=== PATIENT | female | born 1975 | race Two or more races ===

== ENCOUNTER → 2020-01-17 | Outpatient (CLI) | payer SELFPAY ==
--- NOTE | 2020-01-17 12:57 | ER RDC ASSESSMENT REPORT ---
Intake - In the Last 14 days Have you traveled outside [place]?: No Have you been in close contact with someone CONFIRMED: Yes Worked in Healthcare?: No - Symptoms Subjective Fever(Victor feverish): No Chills: No Muscule Aches: No Runny Nose: No Sore Throat: No Cough (New or worsening chronic cough): No Shortness of breath: No Nausea or Vomiting: No Headache: No Abdominal Pain: No Diarrhea(3 or more loose stools in last 24 hours): No - Do you have any of the following Chronic lung disease: Asthma or emphysema or COPD: Yes Chronic Lung Disease Comment: asthma Cystic Fibrosis: No Diabetes: No High Blood Pressure: No Cardiovascular Disease: No Chronic Kidney Disease: No Chronic Liver Disease: No Chronic blood disorder like Sickle Cell Disease: No Weak immune system due to disease or medication: No Neurologic condition that limits movement: No Developmental delay - Moderate to Severe: No Recent (within past 2 weeks) or current : No Morbid Obesity (>100 pounds over ideal weight): No - Objective Temperature: 98.1 F Pulse Rate: 77 Respiratory Rate: 18 Blood Pressure: 131/75 O2 Sat by Pulse Oximetry: 95 Objective: Given above, testing performed: If Testing Performed: Test Specimen Type Sent to General - General Information source: Patient Notes: Patient presents to the C for screening for the coronavirus. Patient reports recent [id number] travel. Patient denies any symptoms at this time. Past Medical History - General Information source: Patient - Social History Smoking Status: Current Every Day Smoker Pulmonary Medical History: Reports: Hx Asthma Surgical Hx: Negative Physical Exam - Notes Notes: The patient was evaluated during the global Covid 19 pandemic, and that diagnosis was suspected/considered upon their initial presentation. Their evaluation, treatment and testing was consistent with current guidelines for patients who present with complaints or symptoms that may be related to Covid 19. Full physical exam could not be performed due to covid 19 isolation protocols. Constitutional: Nontoxic appearance, no acute distress Eyes: Nonicteric, extraocular movements intact, sclera clear Cardiovascular: Heart rate and rhythm regular, no JVD Respiratory: Breath sounds clear bilaterally, nonlabored breathing, no use of accessory muscles, no tachypnea Gastrointestinal: Abdomen not distended Muculoskeletal: Moves all extremities well Skin: Normal color Neuro: Awake alert oriented, normal speech Psych: Normal mood and affect Diagnostic Results Laboratory Results: Patient presents with possible exposure worrisome for possible Covid 19. Patient does not have emergency worrying symptoms such as difficulty breathing, shortness of breath, chest pain, pressure, confusion or cyanosis. Patient appears suitable for discharge as they are not of an advanced age, do not have any chronic medical conditions such as diabetes, CAD, immune deficiency, or chronic kidney disease. Patient's vital signs are stable and patient is nontoxic in appearance. Good return precautions have been discussed with patient, patient verbalized understanding and is agreeable with discharge plan of care at this time. Patient Education/Counseling Counseling/Education: Patient was provided with discharge information including: As a person under investigation for Covid 19, the [facility], division of public health advises you to adhere to the following guidance until your test results are reported to you. If your test result is positive, you will receive additional information from your provider and your local health department at that time. Remain at home until you are cleared by the health provider or public health authorities. Keep a log of visitors to your home, notify any visitors to your home of your isolation status. If you plan to move to a new address or leave the county, notify the local health department in your County. Call your doctor or seek care if you have an urgent medical need. Before se eking medical care, call ahead to get instructions from the provider before arriving at the medical office clinic or hospital. Notify them that you are being tested for the virus that causes Covid 19 so that arrangements can be made, as necessary, to prevent transmission to others in the healthcare setting. Next, notify the local health department in your county. If a medical emergency arises and you need to call 911, inform the first responders that you are being tested for the virus that causes Covid 19. Next, notify the local health department in your county. RDC Discharge - Discharge Condition: Stable Disposition: Home; Selfcare
[2020-01-17 13:05] VITALS: BP 131/75
== END ==
LOC: RDC 12:31
PROVIDERS: ATTEND Nurse Practitioner Family
DX: Z20.828 Contact with and (suspected) exposure to other viral communicable diseases (principal); J45.909 Unspecified asthma, uncomplicated; F17.200 Nicotine dependence, unspecified, uncomplicated
CPT/HCPCS: 87635; C9803; 99201

== ENCOUNTER 2020-01-21 20:04 | Emergency (ER) | payer SELFPAY ==
--- NOTE | 2020-01-21 20:37 | ER Document Report ---
ED Medical Screen (RME) - General Chief Complaint: Eye Problem Stated Complaint: PINK EYE/EYE ITCHING,IRRITATION Time Seen by Provider: 01/21/20 20:30 Mode of Arrival: Ambulatory Information source: Patient Notes: 44-year-old presents to ED for complaint of sore throat runny nose pinkeye for the last 4 days. She states she does not really cough. She states she has not had any fevers. She states she did get tested to get tested on Friday in the emergency room came back negative. She states she just got the results of her test yesterday. She states she has not been to work since she got tested. She is alert oriented respirations regular nonlabored speaking in full sentences. He states when she came here on Friday she did not have pinkeye eyes and runny eyes. She states the peak runny eyes started on Friday morning. States she has been home since she was in the emergency room as she was waiting for her results. Will get strep test visual acuity and have her seen by someone to get a thorough eye exam. I have greeted and performed a rapid initial assessment of this patient. A comprehensive ED assessment and evaluation of the patient, analysis of test results and completion of medical decision making process will be conducted by an additional ED providers. Past Medical History Pulmonary Medical History: Reports: Hx Asthma Physical Exam - Vital signs Vitals: Temp Pulse Resp BP Pulse Ox 98.4 F 91 16 134/80 H 98 01/21/20 20:08 01/21/20 20:08 01/21/20 20:08 01/21/20 20:08 01/21/20 20:08 Course - Vital Signs Vital signs: Temp Pulse Resp BP Pulse Ox 98.4 F 91 16 134/80 H 98 01/21/20 20:08 01/21/20 20:08 01/21/20 20:08 01/21/20 20:08 01/21/20 20:08
[2020-01-22] MEDS ORDERED: TETRACAINE HCL 0.5% OPH SOLN 4 ML OU ONE (01:13)
--- NOTE | 2020-01-22 02:10 | ER Document Report ---
ED General - General Chief Complaint: Redness of Eye Stated Complaint: PINK EYE/EYE ITCHING,IRRITATION Time Seen by Provider: 01/21/20 20:30 Primary Care Provider: [facility] [Provider Group] - Follow up as needed Mode of Arrival: Ambulatory - HPI Notes: Patient is a 44-year-old female who presents with bilateral eye redness that began 3 days ago. Patient states for the past week she has been sick and reports symptoms of sore throat, shortness of breath, nasal congestion, and sinus pressure. She was tested for COVID which was negative. She began experiencing right eye redness, tearing, and itching. She states her symptoms worsened yesterday as they spread to her left eye. She reports blurred vision and yellow drainage but denies fever, chest pain, cough, headache, nausea, vomiting, abdominal pain, and diarrhea. Patient has been using homeopathic "natural pinkeye relief " drops with no relief. - Related Data Home Medications: biotin, mvi Past Medical History - General Information source: Patient - Social History Smoking Status: Current Every Day Smoker Frequency of alcohol use: None Drug Abuse: None Family History: Reviewed & Not Pertinent Pulmonary Medical History: Reports: Hx Asthma Review of Systems - Review of Systems Constitutional: No symptoms reported EENT: See HPI Cardiovascular: No symptoms reported Respiratory: See HPI Gastrointestinal: No symptoms reported Genitourinary: No symptoms reported Female Genitourinary: No symptoms reported Musculoskeletal: No symptoms reported Skin: No symptoms reported Hematologic/Lymphatic: No symptoms reported Neurological/Psychological: No symptoms reported Physical Exam - Vital signs Vitals: Temp Pulse Resp BP Pulse Ox 98.4 F 91 16 134/80 H 98 01/21/20 20:08 01/21/20 20:08 01/21/20 20:08 01/21/20 20:08 01/21/20 20:08 - Notes Notes: PHYSICAL EXAMINATION: VITALS: Vitals reviewed and within normal limits. GENERAL: Well-appearing, well-nourished and in no acute distress. HEAD: Atraumatic, normocephalic. EYES: Pupils equal round and reactive to light, extraocular movements intact, sclera anicteric, conjunctiva red bilaterally. No purulent drainage and no cobblestoning noted to conjunctiva. ENT: nares patent, oropharynx clear without exudates. Moist mucous membranes. NECK: Normal range of motion, supple without lymphadenopathy. LUNGS: Breath sounds clear to auscultation bilaterally and equal. No wheezes rales or rhonchi. HEART: Regular rate and rhythm without murmurs. ABDOMEN: Soft, nontender, normoactive bowel sounds. No guarding, no rebound. No masses appreciated. EXTREMITIES: Normal range of motion, no pitting or edema. No cyanosis. NEUROLOGICAL: No focal neurological deficits. Moves all extremities spontaneously and on command. PSYCH: Normal mood, normal affect. SKIN: Warm, Dry, normal turgor, no rashes or lesions noted. Course - Re-evaluation Re-evalutation: Patient is a 44-year-old female who presents with bilateral eye redness, tearing, and itching that is worsened over the past 2 days. She has been sick with sore throat and nasal congestion (COVID negative). On exam, bilateral conjunctiva is injected with no purulent drainage or cobblestoning noted. Vital signs are within normal limits. Strep group a swab negative. patient will be discharged home with a prescription for Polytrim eyedrops as antibiotic prophylaxis. Patient instructed to wash hands and surfaces frequently to avoid transmission of conjunctivitis to her family members. Return precautions given. - Vital Signs Vital signs: Temp Pulse Resp BP Pulse Ox 98.9 F 80 19 140/79 H 99 01/22/20 02:23 01/22/20 02:23 01/22/20 02:23 01/22/20 02:23 01/22/20 02:23 Discharge - Discharge Clinical Impression: Viral conjunctivitis of both eyes, Redness of both eyes Upper respiratory infection Qualifiers: URI type: unspecified viral URI Qualified Code(s): J06.9 - Acute upper respiratory infection, unspecified Condition: Stable Disposition: HOME, SELF-CARE Additional Instructions: Conjunctivitis You have an infection in your eye, commonly known as "pink eye." Conjunctivitis causes redness, mild discomfort, itching, and mattering on the eyelids. It is very contagious, so you must be careful to wash your hands after touching your face so you don't pass the infection on to others. Conjunctivitis is caused by both viruses and bacteria. It usually responds quickly to treatment with antibiotic drops. These should be placed in the eye as prescribed (usually every three to four hours while you're awake). If you wear contact lenses, don't put them in your eyes until the infection is cleared and you are no longer using the drops (unless your doctor advises you otherwise). Should you develop increasing eye pain, severe swelling, decreased vision, or fail to improve as expected, please return for re-examination. Prescriptions: Polymyxin B Sulf/Trimethoprim [Polytrim Eye Drops] 1 drop OP QID 7 Days #1 bottle Referrals: [facility] [Provider Group] - Follow up as needed
[2020-01-22 02:23] VITALS: BP 140/79
== END 2020-01-22 02:25 | disposition home or self-care (01) ==
LOC: ER 20:04
DX: H10.9 Unspecified conjunctivitis (principal); J06.9 Acute upper respiratory infection, unspecified; B97.89 Other viral agents as the cause of diseases classified elsewhere; J02.9 Acute pharyngitis, unspecified; R09.81 Nasal congestion; J45.909 Unspecified asthma, uncomplicated; R06.02 Shortness of breath; F17.200 Nicotine dependence, unspecified, uncomplicated
CPT/HCPCS: 87070; 87880; 99283

== ENCOUNTER 2020-04-27 14:53 | Emergency (ER) | payer SELFPAY ==
[2020-04-27] MEDS ORDERED: METHYLPREDNISOLONE INJ 125 MG/2 ML SDV IV ONE (15:53)
[2020-04-27] MEDS ORDERED: FAMOTIDINE INJ/PF 20 MG/2 ML SDV IV ONE (15:53)
[2020-04-27] MEDS ORDERED: DIPHENHYDRAMINE HCL 50 MG/ML VIAL IV ONE (15:53)
[2020-04-27] MEDS ORDERED: PREDNISONE 20 MG TABLET PO ONE (21:04)
[2020-04-27] MEDS ORDERED: ALBUTEROL SULFATE HFA (90 MCG/PUFF) 8 GM MDI (1 MDI/ER DISP) IH PRN (21:04)
--- NOTE | 2020-04-27 21:13 | ER Document Report ---
ED General - General Chief Complaint: Allergic Reaction Stated Complaint: RASH Time Seen by Provider: 04/27/20 15:48 Primary Care Provider: SULEMA BRANDON MD [HONORARY] - Follow up as needed - HPI Context: Chief Complaint: [Allergic reaction] [This is a 44-year-old female with a history of asthma who works at the [employer] in the [employer] department. Patient states that yesterday morning she drank some orange juice and noticed later that she was just starting to develop a papular, punctate rash pattern on both of her arms. 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 Patient states that when she got home she took some Benadryl and basically slept most the day yesterday. Today she says the rash has gotten a lot worse and it is maculopapular, present on her arms bilaterally, chest, abdomen, bilateral lower extremities. Patient states that she had a significant amount of itching along with a sensation of shortness of breath and her throat closing. When patient was seen here initially in triage, she was given IV Benadryl, Pepcid and Solu-Medrol. Since then patient states her rash has markedly improved and she denies any trouble swallowing or shortness of breath at this time. Patient states that she has a history of asthma and moved here from [facility] about 6 months ago and has not been able to find her albuterol inhaler. ] History obtained from [patient] Symptoms began:[Yesterday morning] Onset: [Sudden] Timing: [While at work] Quality: [Pruritic, widespread] Intensity: [Severe per patient] Location: [Chest, abdomen, bilateral upper and lower extremities] Radiation: [Patient denies] [The pain does not migrate to a new location.] Aggravating factors: Unknown Relieving factors: [Benadryl, Pepcid, Solu-Medrol] Positive SOB [Denies] nausea [Denies] vomiting [Denies] sweats [Denies] fever [Denies] cough [Denies] calf or leg swelling or pain - Related Data Allergies/Adverse Reactions: No Known Allergies Allergy (Unverified 04/27/20 15:48) Past Medical History - General Information source: Patient - Social History Smoking Status: Current Every Day Smoker Chew tobacco use (# tins/day): No Frequency of alcohol use: Occasional Drug Abuse: None Family History: Reviewed & Not Pertinent Pulmonary Medical History: Reports: Hx Asthma Review of Systems - Review of Systems Notes: Review of systems as below unless otherwise stated in HPI. CONSTITUTIONAL [No] fever, [No] chills. EYES [No] eye pain. ENT [No] URI symptoms, [No] sore throat, [No] ear pain. Positive throat swelling CARDIOVASCULAR [No] chest pain, [No] palpitations, [No] edema. RESPIRATORY [No] Cough, positive SOB, [No] wheezing. GASTROINTESTINAL [No] abdominal pain, [No] nausea, [No] Diarrhea, [No] Vomiting, [No] constipation, [No] melena, [No] rectal bleeding. GENITOURINARY [No] dysuria, [No] urinary frequency, [No] hematuria, [No] urinary urgency, [No] vaginal discharge, [No] vaginal bleeding. MUSCULOSKELETAL [No] Back pain. SKIN Positive rash. NEUROLOGIC [No] Headache, [No] recent seizures, [No] paralysis,[No] parathesias. ENDOCRINE [No] polyuria. HEMO/LYMPATIC [No] easy brusing PSYCHIATRIC [No] depression. Physical Exam - Vital signs Vitals: Temp Pulse Resp BP Pulse Ox 98.2 F 96 16 138/84 H 98 04/27/20 14:56 04/27/20 14:56 04/27/20 14:56 04/27/20 14:56 04/27/20 14:56 - Notes Notes: CONSTITUTIONAL [Vital signs reviewed, Patient appears comfortable, Alert and oriented X 3, Normal stature.] HEAD [Atraumatic, Normocephalic.] EYES [Eyes are normal to inspection, No discharge from eyes, Extraocular muscles intact, Sclera are normal, Conjunctiva are normal.] ENT [External ears normal to inspection, Nose examination normal, Mouth normal to inspection. Posterior oropharynx appears patent. No stridor is present.] NECK [Normal ROM, No jugular venous distention, No meningeal signs, ] RESPIRATORY CHEST [Chest is nontender, Breath sounds normal, No respiratory distress.] CARDIOVASCULAR [RRR, No murmurs, Normal S1 S2, No rub, No gallop.] ABDOMEN [Abdomen is nontender, No pulsatile masses, No other masses, Bowel sounds normal, No distension, No peritoneal signs, No hernias.] BACK [There is no CVA Tenderness, There is no tenderness to palpation, Normal inspection.] UPPER EXTREMITY [Inspection normal, No cyanosis, No clubbing, No edema, LOWER EXTREMITY [Inspection normal, No cyanosis, No clubbing, No edema, No calf tenderness, NEURO [No focal motor deficits, No focal sensory deficits, Speech normal.] SKIN [Skin is warm, Skin is dry, patient has some's residual spots of macular erythema on her anterior arms, chest, abdomen, lower extremities. The erythema is very faint, there are no hives and the erythema is blanching on palpation PSYCHIATRIC [Normal affect. ] Course - Re-evaluation Re-evalutation: 04/27/20 21:23 Results of ED MSE, diagnosis, plan of treatment, plan to provide patient with a albuterol inhaler and a dose of prednisone for tomorrow given the pharmacies are going to be closed on in [place] all discussed with patient. When asked if patient had any questions and if all the patient's concerns during this visit were addressed, patient answered in the affirmative. - Vital Signs Vital signs: Temp Pulse Resp BP Pulse Ox 98.8 F 84 16 134/61 H 98 04/27/20 19:06 04/27/20 19:06 04/27/20 19:06 04/27/20 19:06 04/27/20 19:06 - Laboratory Results Critical Laboratory Results Reviewed: No Critical Results - Radiology Results Critical Radiology Results Reviewed: No Critical Results Discharge - Discharge Clinical Impression: History of asthma Acute allergic reaction Qualifiers: Encounter type: initial encounter Qualified Code(s): T78.40XA - Allergy, unspecified, initial encounter Condition: Stable Disposition: HOME, SELF-CARE Additional Instructions: Return to the Emergency Department without delay if any worse. You have been diagnosed with an acute allergic reaction. Exact cause of which is unknown. As we discussed, I am going to prescribe prednisone 60 mg a day for another 3 days. Since you are out of your albuterol inhaler and there are no pharmacies open tomorrow, we are going to provide you with an albuterol inhaler and 60 mg of prednisone to take tomorrow on . Be certain to fill the prescriptions for the rest of your prednisone and your EpiPen's and always keep an EpiPen on your person at all times no matter what. You may have another acute allergic reaction and need a self-administered dose of epinephrine to help keep you breathing while you were trying to contact 911. HOME CARE INSTRUCTIONS & INFORMATION: Thank you for choosing us for your medical needs. We hope you're satisfied with the care you received. After you leave, you must properly care for your problem and, at the same time, observe its progress. Any condition can change. Some illnesses can change rapidly over hours or days. If your condition worsens, return to the Emergency Department or see your physician promptly. ABOUT YOUR X-RAYS AND EKG'S: If you had an EKG or X-rays taken, they have been read by the Emergency Physician. The X-rays and EKG's will also be read by a Radiologist or Bull Gang Worker within 24 hours. If discrepancies are noted, you will be notified by telephone. Please be certain the ED has a correct telephone number & address where you can be reached. Also, realize that some fractures or abnormalities do not show up on initial X-rays. If your symptoms continue, see your physician. ABOUT YOUR LABORATORY TEST: If you had laboratory tests, the results have been reviewed by the Emergency Physician. Some test results (for example cultures) may not be available for several days. You will be contacted if any test result shows you need additional treatment. Please be certain the ED has a correct telephone number and address where you can be reached. ABOUT YOUR MEDICATIONS: You will receive instructions on how to take your medicine on the prescription label you receive. Additional information may be provided by the Pharmacy. If you have questions afterwards, call the ED for clarification or further instructions. Some prescribed medications may cause drowsiness. Do not perform tasks such as driving a car or operating machinery without consulting your Pharmacist. If you feel you need a refill of pain medication, your condition will need re-evaluation. Please do not call for a refill of any medication. ABOUT YOUR SIGNATURE: Signature of this document acknowledges to followin. Understanding that you received emergency treatment and that you may be released before al medical problems are known or treated. Please be certain the ED has a correct phone number & address where you can be reached. 2. Acknowledgement that you will arrange for follow-up care as recommended. 3. Authorization for the Emergency Physician to provide information to your follow-up Physician in order to maximize your care. AT ANY TIME, IF YOUR SYMPTOMS CHANGE SIGNIFICANTLY OR WORSEN OR YOU DEVELOP NEW SYMPTOMS, RETURN TO THE EMERGENCY DEPARTMENT IMMEDIATELY FOR RE-EVALUATION. OUR GOAL IS TO PROVIDE EXCELLENT MEDICAL CARE! WE HOPE THAT WE HAVE MET YOUR EXPECTATIONS DURING YOUR EMERGENCY DEPARTMENT VISIT AND THAT YOU FEEL YOU HAVE RECEIVED EXCELLENT CARE! Acute Allergic Reaction Your symptoms are due to an allergic reaction. Allergy can cause hives, swelling of the hands, feet, and face, hoarseness, and difficulty swallowing or breathing. It may be due to exposure to medication, animal dander, foods, infection, or insect bites. Medication is a common cause, even when prior use of this same medication caused no problems. Acute treatment may include adrenalin and antihistamines. Usually, the specific allergic agent can't be identified unless repeated episodes occur. Home treatment includes the following: (1) Stop any suspicious medications. This will be discussed with you. (2) Oral antihistamines for the next four to five days. Example, diphenhydramine (Benadryl) every four hours. (3) You may also use cimetidine (Tagamet), or famotidine (Pepcid) every four hours if diphenhydramine is not controlling itching and hives. (4) Avoid aspirin until the hives completely disappear. (5) Avoid hot baths or showers until the hives are completely gone. Call the doctor if faintness, difficulty swallowing, tightness in the chest, or wheezing occurs. Epinephrine An injection of epinephrine (also called adrenalin) is used to treat allergic reactions, asthma, and some other medical conditions. It is a stimulant medication that consticts blood vessels, relaxes smooth muscles such a s in the bronchioles of the lung, elevates blood pressure, and increases heart rate. It can temporarily make you feel very nervous and shakey, but it's affects last only a short time, about 15 to 30 minutes at most. Prescriptions: Prednisone [Deltasone 20 mg Tablet] 3 tab PO DAILY 2 Days #6 tablet Epinephrine [Epipen 2-Parker] 0.3 mg IM ONCE PRN #1 packet PRN Reason: Allergic reaction Referrals: SULEMA BRANDON MD [HONORARY] - Follow up as needed
--- NOTE | 2020-04-27 21:36 | ER Document Report ---
ED Medical Screen (RME) - General Chief Complaint: Allergic Reaction Stated Complaint: RASH Time Seen by Provider: 04/27/20 15:48 Primary Care Provider: SULEMA BRANDON MD [HONORARY] - Follow up as needed - [facility] Notes: 04/27/20 21:34 44-year-old female with a history of asthma presents to the emergency room today for evaluation of a systemic rash that she noticed has become progressively worse since yesterday. Patient states that she noticed the rash developing on her arms, and as the day went on it became progressively worse. She did take Benadryl last night, she is not sure if this completely help but it did help her sleep. Patient states she started to take a detox medication but that was 3 days prior and started cooking with saffron oil, otherwise denies any new medications foods or travel. Denies any new larger detergent, fabric softener etc. Denies any shortness of breath, chest pain, difficulty swallowing. No fevers or chills. I have greeted and performed a rapid initial assessment of this patient. A comprehensive ED assessment and evaluation of the patient, analysis of test results and completion of the medical decision making process will be conducted by additional ED providers. PHYSICAL EXAMINATION: GENERAL: Well-appearing, well-nourished and in no acute distress. ENT: Uvula midline, no deviation. No angioedema. NECK: Normal range of motion CV: s1, s2 regular LUNGS: No respiratory distress Musculoskeletal: Normal range of motion NEUROLOGICAL: Normal speech, normal gait. SKIN: Warm, Dry, normal turgor, no rashes or lesions noted. Maculopapular rash systemically The patient was evaluated during a global COVID-19 pandemic and that diagnosis was suspected/considered upon their initial presentation. Their evaluation, treatment and testing was consistent with current guidelines for patients who present with complaints or symptoms and may be related to COVID-19. - Related Data Allergies/Adverse Reactions: No Known Allergies Allergy (Unverified 04/27/20 15:48) Past Medical History - Social History Chew tobacco use (# tins/day): No Frequency of alcohol use: Occasional Drug Abuse: None Pulmonary Medical History: Reports: Hx Asthma Physical Exam - Vital signs Vitals: Temp Pulse Resp BP Pulse Ox 98.2 F 96 16 138/84 H 98 04/27/20 14:56 04/27/20 14:56 04/27/20 14:56 04/27/20 14:56 04/27/20 14:56 Course - Vital Signs Vital signs: Temp Pulse Resp BP Pulse Ox 98.8 F 84 16 134/61 H 98 04/27/20 19:06 04/27/20 19:06 04/27/20 19:06 04/27/20 19:06 04/27/20 19:06 Doctor's Discharge - Discharge Clinical Impression: History of asthma Acute allergic reaction Qualifiers: Encounter type: initial encounter Qualified Code(s): T78.40XA - Allergy, unspecified, initial encounter Condition: Stable Disposition: HOME, SELF-CARE Additional Instructions: Return to the Emergency Department without delay if any worse. You have been diagnosed with an acute allergic reaction. Exact cause of which is unknown. As we discussed, I am going to prescribe prednisone 60 mg a day for another 3 days. Since you are out of your albuterol inhaler and there are no pharmacies open tomorrow, we are going to provide you with an albuterol inhaler and 60 mg of prednisone to take tomorrow on . Be certain to fill the prescriptions for the rest of your prednisone and your EpiPen's and always keep an EpiPen on your person at all times no matter what. You may have another acute allergic reaction and need a self-administered dose of epinephrine to help keep you breathing while you were trying to contact 911. HOME CARE INSTRUCTIONS & INFORMATION: Thank you for choosing us for your medical needs. We hope you're satisfied with the care you received. After you leave, you must properly care for your problem and, at the same time, observe its progress. Any condition can change. Some illnesses can change rapidly over hours or days. If your condition worsens, return to the Emergency Department or see your physician promptly. ABOUT YOUR X-RAYS AND EKG'S: If you had an EKG or X-rays taken, they have been read by the Emergency Physician. The X-rays and EKG's will also be read by a Radiologist or [employer] within 24 hours. If discrepancies are noted, you will be notified by telephone. Please be certain the ED has a correct telephone number & address where you can be reached. Also, realize that some fractures or abnormalities do not show up on initial X-rays. If your symptoms continue, see your physician. ABOUT YOUR LABORATORY TEST: If you had laboratory tests, the results have been reviewed by the Emergency Physician. Some test results (for example cultures) may not be available for several days. You will be contacted if any test result shows you need additional treatment. Please be certain the ED has a correct telephone number and address where you can be reached. ABOUT YOUR MEDICATIONS: You will receive instructions on how to take your medicine on the prescription label you receive. Additional information may be provided by the Pharmacy. If you have questions afterwards, call the ED for clarification or further instructions. Some prescribed medications may cause drowsiness. Do not perform tasks such as driving a car or operating machinery without consulting your Pharmacist. If you feel you need a refill of pain medication, your condition will need re-evaluation. Please do not call for a refill of any medication. ABOUT YOUR SIGNATURE: Signature of this document acknowledges to followin. Understanding that you received emergency treatment and that you may be released before al medical problems are known or treated. Please be certain the ED has a correct phone number & address where you can be reached. 2. Acknowledgement that you will arrange for follow-up care as recommended. 3. Authorization for the Emergency Physician to provide information to your follow-up Physician in order to maximize your care. AT ANY TIME, IF YOUR SYMPTOMS CHANGE SIGNIFICANTLY OR WORSEN OR YOU DEVELOP NEW SYMPTOMS, RETURN TO THE EMERGENCY DEPARTMENT IMMEDIATELY FOR RE-EVALUATION. OUR GOAL IS TO PROVIDE EXCELLENT MEDICAL CARE! WE HOPE THAT WE HAVE MET YOUR EXPECTATIONS DURING YOUR EMERGENCY DEPARTMENT VISIT AND THAT YOU FEEL YOU HAVE RECEIVED EXCELLENT CARE! Acute Allergic Reaction Your symptoms are due to an allergic reaction. Allergy can cause hives, swelling of the hands, feet, and face, hoarseness, and difficulty swallowing or breathing. It may be due to exposure to medication, animal dander, foods, infection, or insect bites. Medication is a common cause, even when prior use of this same medication caused no problems. Acute treatment may include adrenalin and antihistamines. Usually, the specific allergic agent can't be identified unless repeated episodes occur. Home treatment includes the following: (1) Stop any suspicious medications. This will be discussed with you. (2) Oral antihistamines for the next four to five days. Example, diphenhydramine (Benadryl) every four hours. (3) You may also use cimetidine (Tagamet), or famotidine (Pepcid) every four hours if diphenhydramine is not controlling itching and hives. (4) Avoid aspirin until the hives completely disappear. (5) Avoid hot baths or showers until the hives are completely gone. Call the doctor if faintness, difficulty swallowing, tightness in the chest, or wheezing occurs. Epinephrine An injection of epinephrine (also called adrenalin) is used to treat allergic reactions, asthma, and some other medical conditions. It is a stimulant medication that consticts blood vessels, relaxes smooth muscles such as in the bronchioles of the lung, elevates blood pressure, and increases heart rate. It can temporarily make you feel very nervous and shakey, but it's affects last only a short time, about 15 to 30 minutes at most. Prescriptions: Prednisone [Deltasone 20 mg Tablet] 3 tab PO DAILY 2 Days #6 tablet Epinephrine [Epipen 2-Parker] 0.3 mg IM ONCE PRN #1 packet PRN Reason: Allergic reaction Referrals: SULEMA BRANDON MD [HONORARY] - Follow up as needed
[2020-04-27 22:02] VITALS: BP 133/87
== END 2020-04-27 21:45 | disposition home or self-care (01) ==
LOC: ER 14:53
DX: R21 Rash and other nonspecific skin eruption (principal)
CPT/HCPCS: 99284; 96374; 96375; J1200; J2930; J7512; S0028; J3490